=== PATIENT | male | born 1980 | race Caucasian/White ===

== ENCOUNTER 2020-07-31 11:45 | Emergency (ER) | payer OTHER ==
[~2020-07-31] VITALS: Ht 172.7 cm; Wt 88.6 kg
[2020-07-31 12:49] LABS: STREP SCREEN NEGATIVE
[2020-07-31 13:54] VITALS: BP 158/78; PULSE 91; TEMP 99.1
== END 2020-07-31 13:45 | disposition home or self-care (01) ==
LOC: COL.ER 11:45 → EDBD 11:48 → COL.ER 11:48
PROVIDERS: Nurse Practitioner
DX: U07.1 COVID-19 (principal)

== ENCOUNTER 2021-05-03 18:58 | Emergency (ER) | payer OTHER ==
[2021-05-03 21:52] LABS: HIV 1/2 Antibodies Non-Reactive; HIV-1p24 Antigen Non-Reactive
[2021-05-04 16:24] LABS: HEPATITIS B SURFACE ANTIGEN Negative (Negative); HEPATITIS C VIRUS ANTIBODY Negative (Negative)
== END 2021-05-04 03:36 | disposition expired ==
LOC: COL.ER → EDBD 18:59 → COL.ER 05-04 03:36
PROVIDERS: Family Medicine
DX: S01.93XA Puncture wound without foreign body of unspecified part of head, initial encounter (principal); X78.9XXA Intentional self-harm by unspecified sharp object, initial encounter